=== PATIENT | male | born 1985 ===

== ENCOUNTER 2024-07-23 16:11 | Inpatient (IN) | payer OTHER ==
[~2024-07-23] VITALS: Ht 167.6 cm; Wt 84.1 kg
[2024-07-23] MEDS ORDERED: 0.9% SODIUM CHLORIDE 10 ML SYRINGE IVP PRN (17:45)
[2024-07-23 18:04] LABS: BASOPHILS % (AUTO) 0.6 % (0.0-2.0); HEMATOCRIT 40.1 % (41-53); HEMOGLOBIN 13.8 g/dL (13.5-17.5); LYMPHOCYTES # (AUTO) 2.8 K/uL (1.0-4.8); LYMPHOCYTES % (AUTO) 43.8 % (22.0-44.0); MEAN CORPUSCULAR HGB CONC 34.5 G/dL (31.0-37.0); MEAN CORPUSCULAR VOLUME 87 fL (80-100); MONOCYTES # (AUTO) 0.5 K/uL (0.1-1.0); MONOCYTES % (AUTO) 8.4 % (2.0-9.0); NEUTROPHILS # (AUTO) 2.8 K/uL (1.8-7.7); NEUTROPHILS % (AUTO) 44.2 % (40.0-70.0); PLATELET COUNT (AUTO) 255 K/uL (150-450); RED BLOOD CELL COUNT(AUTO) 4.61 MIL/uL (4.50-5.90); RED CELL DISTRIBUTION WIDTH 12.4 % (11.5-14.5); WHITE BLOOD COUNT (AUTO) 6.4 K/uL (4.5-11.0)
[2024-07-23] MEDS ORDERED: IBUP-1492 PO (18:12)
[2024-07-23 18:17] LABS: ANION GAP 8 mmol/L (8-16); CALCIUM, TOTAL 8.9 mg/dL (8.8-10.5); CARBON DIOXIDE 29 mmol/L (22-29); CHLORIDE 102 mmol/L (98-107); CREATININE 0.78 mg/dL (0.60-1.30); GLOMERULAR FILTR. RATE CALC > 60 mL/min (>60); GLUCOSE,RANDOM 257 mg/dL (70-110); POTASSIUM 4.4 mmol/L (3.5-5.1); SODIUM SERUM 139 mmol/L (136-145); UREA NITROGEN, BLOOD 11 mg/dL (7-18)
[2024-07-23 18:23] LABS: ALANINE AMINOTRANSFERASE 11 U/L (12-78); ALBUMIN 2.9 g/dL (3.4-5.0); ALKALINE PHOSPHATASE 67 U/L (46-116); ASPARTATE AMINOTRANSFERASE 9 U/L (15-37); BILIRUBIN,TOTAL 0.3 mg/dL (0.1-1.0); TOTAL PROTEIN, SERUM 7.1 g/dL (6.4-8.2)
[2024-07-23 18:36] LABS: LACTIC ACID 1.4 mmol/L (0.4-2.0)
[2024-07-23] MEDS: VANCOMYCIN 1.75GM/WATER(PEG) 350 ML IV ONE (18:58)
[2024-07-23] MEDS ORDERED: ONDANSETRON HCL 4 MG/2 ML VIAL IVP PRN (20:30)
[2024-07-23] MEDS ORDERED: IPRATROPIUM BROMIDE 0.5 MG/2.5 ML NEB SOLUTION NEB PRN (20:30)
[2024-07-23] MEDS ORDERED: ALBUTEROL SULFATE 2.5 MG/0.5 ML NEB SOLUTION NEB PRN (20:30)
[2024-07-23] MEDS ORDERED: DEXTROSE 50%-WATER 25 GM/50 ML SYRINGE IVP PRN (20:45)
[2024-07-23] MEDS: PIPERACILLIN/TAZO 3.375 GM/D5W 50 ML IV SCH (22:06)
[2024-07-23] MEDS: INSULIN GLARGINE,HUM.REC.ANLOG 100 UNITS/ML SQ SCH (22:11)
[2024-07-23] MEDS: DOCUSATE SODIUM 100 MG CAPSULE PO SCH (22:12)
[2024-07-23] MEDS: INSULIN LISPRO 100 UNITS/ML SQ PRN (22:26)
[2024-07-23 23:27] VITALS: BP 124/70; PULSE 75; RESP 20; TEMP 97.8; O2SAT 98
[2024-07-23] MEDS ORDERED: SODIUM CHLORIDE 0.9% 500 ML IV ONE (23:42)
[2024-07-23] MEDS: HEPARIN SODIUM,PORCINE 5,000 UNITS/ML VIAL SQ SCH (23:54)
[2024-07-24 05:50] VITALS: BP 122/75; PULSE 76; RESP 20; TEMP 97.2; O2SAT 99
[2024-07-24 06:26] LABS: GLUCOMETER DEV NAME(LOC) 6S.2; GLUCOSE,POINT OF CARE 202 MG/DL (70-110)
[2024-07-24 07:15] LABS: BASOPHILS % (AUTO) 0.9 % (0.0-2.0); EOSINOPHILS % (AUTO) 5.8 % (1.0-6.0); HEMATOCRIT 39.2 % (41-53); HEMOGLOBIN 13.9 g/dL (13.5-17.5); LYMPHOCYTES # (AUTO) 2.5 K/uL (1.0-4.8); LYMPHOCYTES % (AUTO) 47.7 % (22.0-44.0); MEAN CORPUSCULAR HEMOGLOBIN 30.6 pg (26.0-34.0); MEAN CORPUSCULAR HGB CONC 35.4 G/dL (31.0-37.0); MEAN CORPUSCULAR VOLUME 86 fL (80-100); MONOCYTES # (AUTO) 0.4 K/uL (0.1-1.0); MONOCYTES % (AUTO) 8.6 % (2.0-9.0); NEUTROPHILS # (AUTO) 1.9 K/uL (1.8-7.7); PLATELET COUNT (AUTO) 231 K/uL (150-450); RED BLOOD CELL COUNT(AUTO) 4.55 MIL/uL (4.50-5.90); RED CELL DISTRIBUTION WIDTH 12.6 % (11.5-14.5); WHITE BLOOD COUNT (AUTO) 5.2 K/uL (4.5-11.0)
[2024-07-24 07:56] LABS: ANION GAP 6 mmol/L (8-16); CALCIUM, TOTAL 8.5 mg/dL (8.8-10.5); CARBON DIOXIDE 27 mmol/L (22-29); CHLORIDE 103 mmol/L (98-107); CREATININE 0.77 mg/dL (0.60-1.30); GLOMERULAR FILTR. RATE CALC > 60 mL/min (>60); GLUCOSE,RANDOM 213 mg/dL (70-110); POTASSIUM 3.6 mmol/L (3.5-5.1); SODIUM SERUM 136 mmol/L (136-145); UREA NITROGEN, BLOOD 11 mg/dL (7-18)
[2024-07-24] MEDS: ACETAMINOPHEN 325 MG TABLET PO PRN (09:37)
[2024-07-24 12:46] LABS: GLUCOMETER DEV NAME(LOC) 6S.1D; GLUCOSE,POINT OF CARE 200 MG/DL (70-110)
[2024-07-24] MEDS: VANCOMYCIN 1.25 GM/WATER(PEG) 250 ML IV ONE (13:11)
[2024-07-24] MEDS ORDERED: GADOTERATE MEGLUMINE 10 MMOL/20 ML VIAL IVP ONE (13:21)
[2024-07-24] MEDS: VANCOMYCIN 1.25 GM/WATER(PEG) 250 ML IV SCH (17:59)
[2024-07-24 20:29] VITALS: BP 119/70; PULSE 77; RESP 18; TEMP 98.1; O2SAT 98
[2024-07-25 05:16] VITALS: BP 118/78; PULSE 73; RESP 16; TEMP 98.1; O2SAT 99
[2024-07-25 07:00] LABS: ANION GAP 6 mmol/L (8-16); CALCIUM, TOTAL 8.8 mg/dL (8.8-10.5); CARBON DIOXIDE 27 mmol/L (22-29); CHLORIDE 103 mmol/L (98-107); CREATININE 0.89 mg/dL (0.60-1.30); GLOMERULAR FILTR. RATE CALC > 60 mL/min (>60); GLUCOSE,RANDOM 193 mg/dL (70-110); POTASSIUM 3.7 mmol/L (3.5-5.1); SODIUM SERUM 136 mmol/L (136-145); UREA NITROGEN, BLOOD 13 mg/dL (7-18)
[2024-07-25 08:17] VITALS: BP 118/74; PULSE 76; RESP 18; TEMP 98.8; O2SAT 99
[2024-07-25 10:01] LABS: GLUCOMETER DEV NAME(LOC) 6S.1D; GLUCOSE,POINT OF CARE 197 MG/DL (70-110)
[2024-07-25 10:01] LABS: GLUCOMETER DEV NAME(LOC) 6S.2; GLUCOSE,POINT OF CARE 220 MG/DL (70-110)
[2024-07-25] MEDS ORDERED: SODIUM CHLORIDE 0.9% 500 ML IV ONE (11:45)
[2024-07-25 13:36] LABS: GLUCOMETER DEV NAME(LOC) 6S.1D; GLUCOSE,POINT OF CARE 186 MG/DL (70-110)
[2024-07-25 20:17] VITALS: BP 108/63; PULSE 73; RESP 18; TEMP 98.6; O2SAT 97
[2024-07-25 20:26] LABS: GLUCOMETER DEV NAME(LOC) 6S.2; GLUCOSE,POINT OF CARE 196 MG/DL (70-110)
[2024-07-26 05:22] VITALS: BP 108/69; PULSE 66; RESP 18; TEMP 97.6; O2SAT 98
[2024-07-26 08:17] LABS: ANION GAP 7 mmol/L (8-16); C-REACTIVE PROTEIN QUANT 0.16 mg/dL (0.00-0.30); CALCIUM, TOTAL 8.8 mg/dL (8.8-10.5); CARBON DIOXIDE 27 mmol/L (22-29); CHLORIDE 103 mmol/L (98-107); CREATININE 0.92 mg/dL (0.60-1.30); GLOMERULAR FILTR. RATE CALC > 60 mL/min (>60); GLUCOSE,RANDOM 179 mg/dL (70-110); POTASSIUM 3.5 mmol/L (3.5-5.1); SODIUM SERUM 137 mmol/L (136-145); UREA NITROGEN, BLOOD 13 mg/dL (7-18); VANCOMYCIN,RANDOM 23.8 mcg/mL (25.0-50.0)
[2024-07-26 08:51] LABS: GLUCOMETER DEV NAME(LOC) 6S.1D; GLUCOSE,POINT OF CARE 189 MG/DL (70-110)
[2024-07-26 08:51] LABS: GLUCOMETER DEV NAME(LOC) 6S.1D; GLUCOSE,POINT OF CARE 243 MG/DL (70-110)
[2024-07-26 10:22] VITALS: BP 110/69; PULSE 74; RESP 18; TEMP 97.7; O2SAT 100
[2024-07-26 19:40] VITALS: BP 115/65; PULSE 73; RESP 18; TEMP 98.3; O2SAT 98
[2024-07-26] MEDS: VANCOMYCIN 1.5 GM/WATER(PEG) 300 ML IV SCH (20:03)
[2024-07-27 04:55] VITALS: BP 114/74; PULSE 69; RESP 18; TEMP 97.7; O2SAT 97
[2024-07-27 05:21] LABS: GLUCOMETER DEV NAME(LOC) 6S.2; GLUCOSE,POINT OF CARE 178 MG/DL (70-110)
[2024-07-27 07:40] LABS: ANION GAP 5 mmol/L (8-16); CALCIUM, TOTAL 8.9 mg/dL (8.8-10.5); CARBON DIOXIDE 29 mmol/L (22-29); CHLORIDE 104 mmol/L (98-107); CREATININE 0.97 mg/dL (0.60-1.30); GLOMERULAR FILTR. RATE CALC > 60 mL/min (>60); GLUCOSE,RANDOM 153 mg/dL (70-110); POTASSIUM 3.7 mmol/L (3.5-5.1); SODIUM SERUM 138 mmol/L (136-145); UREA NITROGEN, BLOOD 16 mg/dL (7-18)
[2024-07-27 08:07] VITALS: BP 101/62; PULSE 69; RESP 18; TEMP 97.8; O2SAT 99
[2024-07-27 08:16] LABS: GLUCOMETER DEV NAME(LOC) 6S.1D; GLUCOSE,POINT OF CARE 218 MG/DL (70-110)
[2024-07-27 20:16] VITALS: BP 121/67; PULSE 66; RESP 18; TEMP 97.9; O2SAT 96
[2024-07-28 04:21] VITALS: BP 126/70; PULSE 72; RESP 18; TEMP 97.7; O2SAT 99
[2024-07-28 06:27] LABS: ANION GAP 7 mmol/L (8-16); CALCIUM, TOTAL 8.8 mg/dL (8.8-10.5); CARBON DIOXIDE 27 mmol/L (22-29); CHLORIDE 104 mmol/L (98-107); CREATININE 0.91 mg/dL (0.60-1.30); GLOMERULAR FILTR. RATE CALC > 60 mL/min (>60); GLUCOSE,RANDOM 212 mg/dL (70-110); POTASSIUM 3.6 mmol/L (3.5-5.1); SODIUM SERUM 138 mmol/L (136-145); UREA NITROGEN, BLOOD 20 mg/dL (7-18)
[2024-07-28 08:35] VITALS: BP 108/68; PULSE 70; RESP 17; TEMP 98; O2SAT 99
[2024-07-28 08:54] LABS: BASOPHILS % (AUTO) 0.8 % (0.0-2.0); EOSINOPHILS % (AUTO) 4.4 % (1.0-6.0); HEMATOCRIT 39.1 % (41-53); HEMOGLOBIN 13.5 g/dL (13.5-17.5); LYMPHOCYTES # (AUTO) 3.2 K/uL (1.0-4.8); LYMPHOCYTES % (AUTO) 50.2 % (22.0-44.0); MEAN CORPUSCULAR HEMOGLOBIN 30.1 pg (26.0-34.0); MEAN CORPUSCULAR HGB CONC 34.5 G/dL (31.0-37.0); MEAN CORPUSCULAR VOLUME 87 fL (80-100); MONOCYTES # (AUTO) 0.5 K/uL (0.1-1.0); MONOCYTES % (AUTO) 7.3 % (2.0-9.0); NEUTROPHILS # (AUTO) 2.3 K/uL (1.8-7.7); NEUTROPHILS % (AUTO) 37.3 % (40.0-70.0); PLATELET COUNT (AUTO) 283 K/uL (150-450); RED BLOOD CELL COUNT(AUTO) 4.48 MIL/uL (4.50-5.90); RED CELL DISTRIBUTION WIDTH 12.2 % (11.5-14.5); WHITE BLOOD COUNT (AUTO) 6.3 K/uL (4.5-11.0)
[2024-07-28] MEDS ORDERED: SODIUM CHLORIDE 0.9% 500 ML IV ONE (09:02)
[2024-07-28 19:16] LABS: GLUCOMETER DEV NAME(LOC) 6S.2; GLUCOSE,POINT OF CARE 241 MG/DL (70-110)
[2024-07-28 19:16] LABS: GLUCOMETER DEV NAME(LOC) 6S.2; GLUCOSE,POINT OF CARE 205 MG/DL (70-110)
[2024-07-28 19:55] VITALS: BP 126/69; PULSE 71; RESP 16; TEMP 98; O2SAT 98
[2024-07-28 20:50] LABS: GLUCOMETER DEV NAME(LOC) 6S.1D; GLUCOSE,POINT OF CARE 294 MG/DL (70-110)
[2024-07-29 04:31] VITALS: BP 123/71; PULSE 66; RESP 18; TEMP 97.7; O2SAT 99
[2024-07-29 07:19] LABS: ANION GAP 7 mmol/L (8-16); CALCIUM, TOTAL 8.8 mg/dL (8.8-10.5); CARBON DIOXIDE 27 mmol/L (22-29); CHLORIDE 103 mmol/L (98-107); CREATININE 0.85 mg/dL (0.60-1.30); GLOMERULAR FILTR. RATE CALC > 60 mL/min (>60); GLUCOSE,RANDOM 202 mg/dL (70-110); POTASSIUM 3.6 mmol/L (3.5-5.1); SODIUM SERUM 137 mmol/L (136-145); UREA NITROGEN, BLOOD 22 mg/dL (7-18); VANCOMYCIN,RANDOM 18.9 mcg/mL (25.0-50.0)
[2024-07-29 08:31] LABS: GLUCOMETER DEV NAME(LOC) 6S.2; GLUCOSE,POINT OF CARE 201 MG/DL (70-110)
[2024-07-29 09:13] VITALS: BP_SYST 132; BP_SYST 16; BP_DIAS 132; BP_DIAS 77; PULSE 78; RESP 16; TEMP 97.4; O2SAT 97
[2024-07-29 17:00] VITALS: BP 121/69; PULSE 79; RESP 18; TEMP 98; O2SAT 99
[2024-07-29 18:26] LABS: GLUCOMETER DEV NAME(LOC) 6S.1D; GLUCOSE,POINT OF CARE 205 MG/DL (70-110)
[2024-07-29 19:49] VITALS: BP 127/73; PULSE 74; RESP 18; TEMP 97.9; O2SAT 98
[2024-07-30 01:31] LABS: GLUCOMETER DEV NAME(LOC) 6N.2B; GLUCOSE,POINT OF CARE 302 MG/DL (70-110)
[2024-07-30 04:57] VITALS: BP 137/75; PULSE 74; RESP 18; TEMP 97.5; O2SAT 97
[2024-07-30 06:54] LABS: ANION GAP 10 mmol/L (8-16); CALCIUM, TOTAL 8.9 mg/dL (8.8-10.5); CARBON DIOXIDE 26 mmol/L (22-29); CHLORIDE 104 mmol/L (98-107); CREATININE 0.81 mg/dL (0.60-1.30); GLOMERULAR FILTR. RATE CALC > 60 mL/min (>60); GLUCOSE,RANDOM 166 mg/dL (70-110); POTASSIUM 3.4 mmol/L (3.5-5.1); SODIUM SERUM 140 mmol/L (136-145); UREA NITROGEN, BLOOD 18 mg/dL (7-18)
[2024-07-30 07:00] LABS: GLUCOMETER DEV NAME(LOC) 6S.1D; GLUCOSE,POINT OF CARE 165 MG/DL (70-110)
[2024-07-30 08:00] VITALS: BP 130/76; PULSE 76; RESP 18; TEMP 97.9; O2SAT 97
[2024-07-30 12:15] LABS: GLUCOMETER DEV NAME(LOC) 6N.2B; GLUCOSE,POINT OF CARE 300 MG/DL (70-110)
[2024-07-30] MEDS: POTASSIUM CHLORIDE 20 MEQ ER TABLET PO ONE (12:48)
[2024-07-30 16:48] VITALS: BP 134/78; PULSE 78; RESP 18; TEMP 98; O2SAT 96
[2024-07-30] MEDS: MetFORMIN HCL 500 MG TABLET PO SCH (17:12)
[2024-07-30 19:50] VITALS: BP 121/64; PULSE 70; RESP 18; TEMP 97.9; O2SAT 99
[2024-07-30 22:16] LABS: GLUCOMETER DEV NAME(LOC) 4E.2; GLUCOSE,POINT OF CARE 137 MG/DL (70-110)
[2024-07-31 04:37] VITALS: BP 113/66; PULSE 72; RESP 18; TEMP 97.9; O2SAT 97
[2024-07-31 07:14] LABS: ANION GAP 5 mmol/L (8-16); CALCIUM, TOTAL 8.9 mg/dL (8.8-10.5); CARBON DIOXIDE 28 mmol/L (22-29); CHLORIDE 105 mmol/L (98-107); CREATININE 0.84 mg/dL (0.60-1.30); GLOMERULAR FILTR. RATE CALC > 60 mL/min (>60); GLUCOSE,RANDOM 188 mg/dL (70-110); POTASSIUM 3.6 mmol/L (3.5-5.1); SODIUM SERUM 138 mmol/L (136-145); UREA NITROGEN, BLOOD 16 mg/dL (7-18)
[2024-07-31 07:57] VITALS: BP 120/71; PULSE 62; RESP 17; TEMP 98.8; O2SAT 95
[2024-07-31 08:00] VITALS: BP 107/66; PULSE 100; RESP 18; TEMP 97.7; O2SAT 100
[2024-07-31 14:06] LABS: GLUCOMETER DEV NAME(LOC) 6N.2B; GLUCOSE,POINT OF CARE 169 MG/DL (70-110)
[2024-07-31 16:56] VITALS: BP 116/64; PULSE 74; RESP 18; TEMP 98.1; O2SAT 99
[2024-07-31 20:04] VITALS: BP 115/66; PULSE 73; RESP 18; TEMP 98.4; O2SAT 98
[2024-07-31 20:26] LABS: GLUCOMETER DEV NAME(LOC) 6N.2B; GLUCOSE,POINT OF CARE 181 MG/DL (70-110)
[2024-08-01 04:59] VITALS: BP 139/85; PULSE 76; RESP 18; TEMP 97.6; O2SAT 98
[2024-08-01 06:51] LABS: GLUCOMETER DEV NAME(LOC) 4E.2; GLUCOSE,POINT OF CARE 159 MG/DL (70-110)
[2024-08-01 07:15] LABS: ANION GAP 8 mmol/L (8-16); CARBON DIOXIDE 25 mmol/L (22-29); CHLORIDE 106 mmol/L (98-107); CREATININE 0.69 mg/dL (0.60-1.30); GLOMERULAR FILTR. RATE CALC > 60 mL/min (>60); GLUCOSE,RANDOM 150 mg/dL (70-110); POTASSIUM 3.5 mmol/L (3.5-5.1); SODIUM SERUM 139 mmol/L (136-145); UREA NITROGEN, BLOOD 18 mg/dL (7-18); VANCOMYCIN,RANDOM 17.1 mcg/mL (25.0-50.0)
[2024-08-01 08:24] VITALS: BP 116/69; PULSE 74; RESP 17; TEMP 97.4; O2SAT 98
[2024-08-01 12:25] LABS: GLUCOMETER DEV NAME(LOC) 4E.2; GLUCOSE,POINT OF CARE 158 MG/DL (70-110)
[2024-08-01] MEDS ORDERED: MEDRONATE TC99M/UD<30 MCL ISOTOPE 1 EA INJ INJ ONE (15:35)
[2024-08-01 16:05] VITALS: BP 118/72; PULSE 75; RESP 18; TEMP 97.9; O2SAT 98
[2024-08-01 20:20] VITALS: BP 123/72; PULSE 65; RESP 18; TEMP 97.8; O2SAT 98
[2024-08-01] MEDS ORDERED: SODIUM CHLORIDE 0.9% 500 ML IV ONE (20:42)
[2024-08-02 00:21] LABS: GLUCOMETER DEV NAME(LOC) 6N.2B; GLUCOSE,POINT OF CARE 147 MG/DL (70-110)
[2024-08-02 06:00] VITALS: BP 126/74; PULSE 71; RESP 18; TEMP 97.4; O2SAT 98
[2024-08-02 09:36] LABS: GLUCOMETER DEV NAME(LOC) 6N.2B; GLUCOSE,POINT OF CARE 140 MG/DL (70-110)
[2024-08-02 15:43] LABS: GLUCOMETER DEV NAME(LOC) 6N.1B; GLUCOSE,POINT OF CARE 150 MG/DL (70-110)
[2024-08-02 15:43] LABS: GLUCOMETER DEV NAME(LOC) 6N.1B; GLUCOSE,POINT OF CARE 152 MG/DL (70-110)
[2024-08-02 15:46] LABS: GLUCOMETER DEV NAME(LOC) 6N.1B; GLUCOSE,POINT OF CARE 241 MG/DL (70-110)
[2024-08-02 15:47] LABS: GLUCOMETER DEV NAME(LOC) 6N.1B; GLUCOSE,POINT OF CARE 236 MG/DL (70-110)
[2024-08-02 15:47] LABS: GLUCOMETER DEV NAME(LOC) 6N.1B; GLUCOSE,POINT OF CARE 199 MG/DL (70-110)
[2024-08-02 15:47] LABS: GLUCOMETER DEV NAME(LOC) 6N.1B; GLUCOSE,POINT OF CARE 222 MG/DL (70-110)
[2024-08-02 15:47] LABS: GLUCOMETER DEV NAME(LOC) 6N.1B; GLUCOSE,POINT OF CARE 204 MG/DL (70-110)
[2024-08-02 15:47] LABS: GLUCOMETER DEV NAME(LOC) 6N.1B; GLUCOSE,POINT OF CARE 244 MG/DL (70-110)
[2024-08-02 15:47] LABS: GLUCOMETER DEV NAME(LOC) 6N.1B; GLUCOSE,POINT OF CARE 192 MG/DL (70-110)
[2024-08-02 16:13] LABS: GLUCOMETER DEV NAME(LOC) 6N.1B; GLUCOSE,POINT OF CARE 241 MG/DL (70-110)
[2024-08-02 16:14] LABS: GLUCOMETER DEV NAME(LOC) 6N.1B; GLUCOSE,POINT OF CARE 222 MG/DL (70-110)
[2024-08-02 16:14] LABS: GLUCOMETER DEV NAME(LOC) 6N.1B; GLUCOSE,POINT OF CARE 32 MG/DL (70-110)
[2024-08-02 16:14] LABS: GLUCOMETER DEV NAME(LOC) 6N.1B; GLUCOSE,POINT OF CARE 236 MG/DL (70-110)
[2024-08-02 16:14] LABS: GLUCOMETER DEV NAME(LOC) 6N.1B; GLUCOSE,POINT OF CARE 244 MG/DL (70-110)
[2024-08-02 16:14] LABS: GLUCOMETER DEV NAME(LOC) 6N.1B; GLUCOSE,POINT OF CARE 150 MG/DL (70-110)
[2024-08-02 16:14] LABS: GLUCOMETER DEV NAME(LOC) 6N.1B; GLUCOSE,POINT OF CARE 199 MG/DL (70-110)
[2024-08-02 16:14] LABS: GLUCOMETER DEV NAME(LOC) 6N.1B; GLUCOSE,POINT OF CARE 192 MG/DL (70-110)
[2024-08-02 16:14] LABS: GLUCOMETER DEV NAME(LOC) 6N.1B; GLUCOSE,POINT OF CARE 204 MG/DL (70-110)
[2024-08-02 16:14] LABS: GLUCOMETER DEV NAME(LOC) 6N.1B; GLUCOSE,POINT OF CARE 152 MG/DL (70-110)
[2024-08-02 17:06] LABS: GLUCOMETER DEV NAME(LOC) 6N.1B; GLUCOSE,POINT OF CARE 150 MG/DL (70-110)
[2024-08-02 19:06] LABS: GLUCOMETER DEV NAME(LOC) 6N.1B; GLUCOSE,POINT OF CARE 140 MG/DL (70-110)
[2024-08-02 19:46] VITALS: BP 131/71; PULSE 74; RESP 20; TEMP 98.1; O2SAT 95
[2024-08-03 05:25] VITALS: BP 130/76; PULSE 72; RESP 18; TEMP 97.7; O2SAT 100
[2024-08-03 07:30] LABS: ANION GAP 7 mmol/L (8-16); CALCIUM, TOTAL 8.8 mg/dL (8.8-10.5); CARBON DIOXIDE 25 mmol/L (22-29); CHLORIDE 107 mmol/L (98-107); CREATININE 0.69 mg/dL (0.60-1.30); GLOMERULAR FILTR. RATE CALC > 60 mL/min (>60); GLUCOSE,RANDOM 145 mg/dL (70-110); POTASSIUM 3.2 mmol/L (3.5-5.1); SODIUM SERUM 139 mmol/L (136-145); UREA NITROGEN, BLOOD 18 mg/dL (7-18)
[2024-08-03 08:31] VITALS: BP 107/68; PULSE 70; RESP 20; TEMP 97.9; O2SAT 99
[2024-08-03 09:36] LABS: GLUCOMETER DEV NAME(LOC) 6N.2B; GLUCOSE,POINT OF CARE 172 MG/DL (70-110)
[2024-08-03 11:40] LABS: GLUCOMETER DEV NAME(LOC) 6S.1D; GLUCOSE,POINT OF CARE 229 MG/DL (70-110)
[2024-08-03 19:37] VITALS: BP 127/69; PULSE 71; RESP 20; TEMP 97.9; O2SAT 98
[2024-08-03 20:31] LABS: GLUCOMETER DEV NAME(LOC) 6N.1B; GLUCOSE,POINT OF CARE 147 MG/DL (70-110)
[2024-08-03 21:31] LABS: GLUCOMETER DEV NAME(LOC) 6N.2B; GLUCOSE,POINT OF CARE 149 MG/DL (70-110)
[2024-08-03 21:31] LABS: GLUCOMETER DEV NAME(LOC) 6N.2B; GLUCOSE,POINT OF CARE 166 MG/DL (70-110)
[2024-08-04 04:18] VITALS: BP 106/74; PULSE 79; RESP 18; TEMP 97.7; O2SAT 98
[2024-08-04 08:25] VITALS: BP 118/75; PULSE 71; RESP 18; TEMP 97.5; O2SAT 98
[2024-08-04 12:06] LABS: GLUCOMETER DEV NAME(LOC) 6S.2; GLUCOSE,POINT OF CARE 172 MG/DL (70-110)
[2024-08-04 19:01] LABS: GLUCOMETER DEV NAME(LOC) 6S.2; GLUCOSE,POINT OF CARE 198 MG/DL (70-110)
[2024-08-04 19:01] LABS: GLUCOMETER DEV NAME(LOC) 6N.2B; GLUCOSE,POINT OF CARE 123 MG/DL (70-110)
[2024-08-04 19:23] VITALS: BP 124/73; PULSE 71; RESP 18; TEMP 98.3; O2SAT 98
[2024-08-04] MEDS ORDERED: SODIUM CHLORIDE 0.9% 500 ML IV ONE (20:25)
[2024-08-05 05:02] VITALS: BP 109/64; PULSE 76; RESP 18; TEMP 97.6; O2SAT 99
[2024-08-05 06:20] LABS: GLUCOMETER DEV NAME(LOC) 6N.1B; GLUCOSE,POINT OF CARE 186 MG/DL (70-110)
[2024-08-05 07:55] VITALS: BP 126/73; PULSE 71; RESP 18; TEMP 97.7; O2SAT 99
[2024-08-05 10:18] LABS: BASOPHILS % (AUTO) 0.6 % (0.0-2.0); HEMATOCRIT 39.6 % (41-53); HEMOGLOBIN 13.5 g/dL (13.5-17.5); LYMPHOCYTES # (AUTO) 2.2 K/uL (1.0-4.8); LYMPHOCYTES % (AUTO) 38.3 % (22.0-44.0); MEAN CORPUSCULAR HEMOGLOBIN 29.8 pg (26.0-34.0); MEAN CORPUSCULAR HGB CONC 34.1 G/dL (31.0-37.0); MEAN CORPUSCULAR VOLUME 87 fL (80-100); MONOCYTES # (AUTO) 0.3 K/uL (0.1-1.0); MONOCYTES % (AUTO) 5.3 % (2.0-9.0); NEUTROPHILS % (AUTO) 51.8 % (40.0-70.0); PLATELET COUNT (AUTO) 251 K/uL (150-450); RED BLOOD CELL COUNT(AUTO) 4.54 MIL/uL (4.50-5.90); RED CELL DISTRIBUTION WIDTH 12.6 % (11.5-14.5); WHITE BLOOD COUNT (AUTO) 5.8 K/uL (4.5-11.0)
[2024-08-05 10:41] LABS: ANION GAP 9 mmol/L (8-16); CALCIUM, TOTAL 8.9 mg/dL (8.8-10.5); CARBON DIOXIDE 24 mmol/L (22-29); CHLORIDE 105 mmol/L (98-107); CREATININE 0.82 mg/dL (0.60-1.30); GLOMERULAR FILTR. RATE CALC > 60 mL/min (>60); GLUCOSE,RANDOM 235 mg/dL (70-110); POTASSIUM 3.6 mmol/L (3.5-5.1); SODIUM SERUM 138 mmol/L (136-145); UREA NITROGEN, BLOOD 15 mg/dL (7-18)
[2024-08-05 13:05] LABS: GLUCOMETER DEV NAME(LOC) 6N.2B; GLUCOSE,POINT OF CARE 140 MG/DL (70-110)
[2024-08-05 17:41] LABS: GLUCOMETER DEV NAME(LOC) 6N.1B; GLUCOSE,POINT OF CARE 140 MG/DL (70-110)
[2024-08-05 19:35] VITALS: BP 118/71; PULSE 73; RESP 18; TEMP 98.1; O2SAT 98
[2024-08-05 21:40] LABS: GLUCOMETER DEV NAME(LOC) 6N.2B; GLUCOSE,POINT OF CARE 190 MG/DL (70-110)
[2024-08-05 21:46] LABS: GLUCOMETER DEV NAME(LOC) 6S.2; GLUCOSE,POINT OF CARE 190 MG/DL (70-110)
[2024-08-06 04:58] VITALS: BP 114/69; PULSE 69; RESP 18; TEMP 97.8; O2SAT 99
[2024-08-06 08:16] LABS: ANION GAP 7 mmol/L (8-16); CALCIUM, TOTAL 8.8 mg/dL (8.8-10.5); CARBON DIOXIDE 26 mmol/L (22-29); CHLORIDE 106 mmol/L (98-107); CREATININE 0.74 mg/dL (0.60-1.30); GLOMERULAR FILTR. RATE CALC > 60 mL/min (>60); GLUCOSE,RANDOM 138 mg/dL (70-110); POTASSIUM 3.2 mmol/L (3.5-5.1); SODIUM SERUM 139 mmol/L (136-145); UREA NITROGEN, BLOOD 16 mg/dL (7-18); VANCOMYCIN,RANDOM 16.3 mcg/mL (25.0-50.0)
[2024-08-06 08:45] VITALS: BP 121/71; PULSE 80; RESP 20; TEMP 98.2; O2SAT 99
[2024-08-06] MEDS ORDERED: POTASSIUM CHL 10 MEQ/WATER 50 ML IV PRN (10:00)
[2024-08-06] MEDS: POTASSIUM CHLORIDE 20 MEQ ER TABLET PO PRN (10:58)
[2024-08-06 12:45] LABS: GLUCOMETER DEV NAME(LOC) 6S.2; GLUCOSE,POINT OF CARE 133 MG/DL (70-110)
[2024-08-06 12:45] LABS: GLUCOMETER DEV NAME(LOC) 6N.1B; GLUCOSE,POINT OF CARE 175 MG/DL (70-110)
[2024-08-06 17:56] LABS: GLUCOMETER DEV NAME(LOC) 6S.2; GLUCOSE,POINT OF CARE 122 MG/DL (70-110)
[2024-08-06 19:32] VITALS: BP 122/77; PULSE 72; RESP 20; TEMP 98.3; O2SAT 99
[2024-08-06 21:45] LABS: GLUCOMETER DEV NAME(LOC) 6N.2B; GLUCOSE,POINT OF CARE 146 MG/DL (70-110)
[2024-08-07 05:13] VITALS: BP 102/75; PULSE 79; RESP 18; TEMP 98.5; O2SAT 97
[2024-08-07 05:36] LABS: GLUCOMETER DEV NAME(LOC) 6N.2B; GLUCOSE,POINT OF CARE 131 MG/DL (70-110)
[2024-08-07 08:00] VITALS: BP 128/73; PULSE 73; RESP 18; TEMP 97.8; O2SAT 99
[2024-08-07] MEDS ORDERED: HEPA500018 SQ (16:10)
[2024-08-07] MEDS ORDERED: DOCU-385 PO (16:10)
[2024-08-07] MEDS ORDERED: INSLAN SQ (16:10)
[2024-08-07] MEDS ORDERED: METF-1211 PO (16:11)
[2024-08-07] MEDS ORDERED: ACET650S24 PR (16:13)
[2024-08-07] MEDS ORDERED: VANC1.5P34 IV (16:13)
[2024-08-07] MEDS ORDERED: ALBU2.5V39 NEB (16:13)
[2024-08-07] MEDS ORDERED: INSU100V SQ (16:15)
[2024-08-07 21:55] LABS: GLUCOMETER DEV NAME(LOC) 6N.2B; GLUCOSE,POINT OF CARE 149 MG/DL (70-110)
[2024-08-07 21:56] LABS: GLUCOMETER DEV NAME(LOC) 6N.2B; GLUCOSE,POINT OF CARE 168 MG/DL (70-110)
== END 2024-08-07 19:09 | DRG 638 ==
LOC: EMS 16:11 → EDH 20:50 → 6S 23:36
PROVIDERS: ADMIT Internal Medicine; ATTEND Internal Medicine
DX: E11.621 Type 2 diabetes mellitus with foot ulcer (principal); D84.9 Immunodeficiency, unspecified; L02.611 Cutaneous abscess of right foot; M86.8X7 Other osteomyelitis, ankle and foot; E11.69 Type 2 diabetes mellitus with other specified complication; E11.65 Type 2 diabetes mellitus with hyperglycemia; L97.519 Non-pressure chronic ulcer of other part of right foot with unspecified severity; L03.031 Cellulitis of right toe; E87.6 Hypokalemia; B95.62 Methicillin resistant Staphylococcus aureus infection as the cause of diseases classified elsewhere; Z79.4 Long term (current) use of insulin
CPT/HCPCS: 73718; 78315; 80048; 80053; 80202; 82962; 83036; 83605; 83735; 84132; 84145; 85025; 85651; 86140; 87040; 87070; 87075; 87186; 87205; 99285; A9503; J1644; J1815; J2543; J7040